=== PATIENT | male | born 1970 | race Caucasian/White ===

== ENCOUNTER → 2017-12-27 16:34 | Outpatient (CLI) | payer MEDICARE, SELFPAY | PROVIDERS: Visit Provider Podiatrist | DX: L97.511 Non-pressure chronic ulcer of other part of right foot limited to breakdown of skin (principal); L97.521 Non-pressure chronic ulcer of other part of left foot limited to breakdown of skin | CPT/HCPCS: 87070; 87075; 87077; 87147; 87186; 87205 ==